=== PATIENT | male | born 1990 | race African-American/Black ===

== ENCOUNTER 2017-02-04 23:35 | Emergency (ER) | payer OTHER ==
--- NOTE | ~2017-02-04 | CR20 ---
[facility]. [facility] A Service of [facility] RADIOLOGY TEXT RESULTS PATIENT: GABE ORDOÑEZ JR LOCATION: SED : [birth year] UNIT #: [id number] AGE: [address]: Shey Echols MD SEX: M ORDER DR: [id number] [place] [id number] E MR#: [id number] #: [id number] NAME: GABE ORDOÑEZ JR : 1990 SEX: M STUDY DATE/TIME: 02/04/2017 23:19 UNIT: SED ROOM: STUDY DESCRIPTION: CR Ankle Min 3 Views Lt Attending Physician: Shey Echols M.D. Ordering Physician: Shey Echols M.D. Primary Care Physician: Primary Care Physician No MEDICAL IMAGING REPORT This report is preliminary unless electronic signature is present. EXAM Left ankle HISTORY Left ankle pain after trauma today. Patient injured ankle playing football FINDINGS AP, lateral, and oblique projections of the ankle show satisfactory integrity of the joint mortise with a smooth articular surface. There is no identifiable fracture, dislocation, or radiopaque foreign body. IMPRESSION Normal ankle. Dictated by... Abhijeet Oreilly M.D. THIS IS AN ELECTRONICALLY VERIFIED REPORT Abhijeet Oreilly M.D. at 02/05/2017 9:55 PM FEL/to TD: 02/05/2017 17:43 JOB #: [id number] MEDICAL IMAGING REPORT Page 1 of 1
[~2017-02-04 23:35] MED LIST: ALKA-SELTZ PLUS1 CAP PO; AMOXICILLIN500 M1 PO; BENADRYL25 M1 PO; ELIMITE60 GM TOP; NO MEDICATIONS; PREDNISONE10 MG/DOSE PO; TYLENOL COLD SE1 TAB PO; ZANTAC150 MG PO
== END 2017-02-05 00:13 | disposition home or self-care (01) ==
LOC: SED 23:35
DX: S93.402A Sprain of unspecified ligament of left ankle, initial encounter (principal); W19.XXXA Unspecified fall, initial encounter; X50.1XXA Overexertion from prolonged static or awkward postures, initial encounter; Y92.89 Other specified places as the place of occurrence of the external cause
CPT/HCPCS: 29540; 73610; 99283

== ENCOUNTER 2017-05-16 19:36 | Emergency (ER) | payer OTHER ==
[~2017-05-16] VITALS: Ht 180.3 cm; Wt 93.0 kg
== END 2017-05-16 21:20 | disposition home or self-care (01) ==
LOC: SED 19:36
DX: S06.0X0A Concussion without loss of consciousness, initial encounter (principal); W22.8XXA Striking against or struck by other objects, initial encounter; Y92.830 Public park as the place of occurrence of the external cause
CPT/HCPCS: 99283